=== PATIENT | female | born 1990 | race Caucasian/White ===

== ENCOUNTER 2016-09-15 19:31 | Emergency (ER) | payer OTHER ==
[~2016-09-15] VITALS: Ht 162.6 cm; Wt 56.7 kg
[2016-09-15 22:40] VITALS: BP 144/83
[2016-09-15] MEDS ORDERED: NAPROXEN 250 MG TAB PO ONE (23:15)
[2016-09-15] MEDS ORDERED: NAPR500T PO (23:25)
== END 2016-09-15 23:29 | disposition home or self-care (01) ==
LOC: M ED 21:12
DX: S89.91XA Unspecified injury of right lower leg, initial encounter (principal); X58.XXXA Exposure to other specified factors, initial encounter; Y92.018 Other place in single-family (private) house as the place of occurrence of the external cause; Y93.89 Activity, other specified; Y99.8 Other external cause status